=== PATIENT | male | born 1975 | race African-American/Black ===

== ENCOUNTER 2017-08-11 11:09 | Emergency (ER) | payer OTHER ==
[2017-08-11 11:53] VITALS: BP 147/91; PULSE 121; TEMP 99.1; BMI 33.0
[2017-08-11] MEDS ORDERED: IBUPROFEN 600 MG TABLET (FP) PO ONE ×2 (13:50→13:57)
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
== END 2017-08-11 14:34 | disposition home or self-care (01) ==
LOC: JERFT 11:09
PROC: 2W3RXYZ Immobilization of Left Lower Leg using Other Device (ICD-10-PCS; principal; 2017-08-11)
DX: S83.92XD Sprain of unspecified site of left knee, subsequent encounter (principal); Y35.81 Legal intervention involving manhandling
CPT/HCPCS: 29530; 73562-TC-LT-FY; 99282-25

== ENCOUNTER 2022-05-10 10:01 | Emergency (ER) | payer OTHER ==
[2022-05-10 10:18] VITALS: BP 147/94; RESP 18; TEMP 99.2; BMI 23.1
[2022-05-10] MEDS ORDERED: IBUPROFEN 600 MG TABLET (FP) PO ONE (10:57)
[2022-05-10] MEDS ORDERED: IBUPROFEN 400 MG TABLET (FP) PO ONE (11:14)
[2022-05-10 11:26] VITALS: PULSE 89
== END 2022-05-10 11:25 | disposition home or self-care (01) ==
LOC: JER 10:01
DX: J02.9 Acute pharyngitis, unspecified (principal); R05.1 Acute cough; B97.4 Respiratory syncytial virus as the cause of diseases classified elsewhere
CPT/HCPCS: 0241U-QW; 99283-25

== ENCOUNTER 2024-12-08 11:39 | Emergency (ER) | payer OTHER ==
[2024-12-08 11:47] VITALS: BP 127/80; PULSE 75; RESP 16; TEMP 97.8
== END 2024-12-08 12:36 | disposition home or self-care (01) ==
LOC: JERFT 11:39
DX: H00.014 Hordeolum externum left upper eyelid (principal); J34.89 Other specified disorders of nose and nasal sinuses
CPT/HCPCS: 99283-25